=== PATIENT | male | born 1955 | race Caucasian/White ===

== ENCOUNTER → 2018-09-02 | Outpatient (CLI) | payer MEDICARE ==
--- NOTE | 2018-09-08 14:49 | TST ---
[place] [address] [employer] STRESS TEST Name: CHEMA AYERS Room: [facility]#: [id number] Admission: 09/02/18 Attend Phys: Katina Kingston MD Discharge: Date of : 51 Date of Service: 09/02/181637 Report #: [id number] THIS REPORT FOR: //name// CC: Katina Kingston DATE OF SERVICE: 09/02/2018 REFERRING PHYSICIAN: Katina Kingston MD INDICATIONS: Abnormal calcium score. CARDIAC HISTORY: Negative. RISK FACTORS: Include age, hyperlipidemia, and hypertension. MEDICATIONS: Include atorvastatin, atenolol, lisinopril, aspirin. Standard Dmitry protocol for 9 minutes 31 seconds. METs 10.99. The patient achieved 99% of the expected maximum heart rate. Resting ECG is normal. During exercise, there were no ST segment changes or arrhythmias. HEMODYNAMIC DATA: Resting heart rate was 90. Peak heart rate was 156. Recovery heart rate is 123. Resting blood pressure 142/93. Peak blood pressure 191/93 with recovery blood pressure of 172/100. IMPRESSION: 1. Clinical portion negative. 2. Electrocardiographic portion negative. 3. Exercise capacity is normal. <ELECTRONICALLY SIGNED> By: Ricardo Horton MD, [facility] 09/08/18 [id number] [id number] Ricardo Horton MD, FACC /nt
== END ==
LOC: M.CRD 14:28
DX: R93.1 Abnormal findings on diagnostic imaging of heart and coronary circulation (principal); I10 Essential (primary) hypertension; E78.5 Hyperlipidemia, unspecified